=== PATIENT | male | born 1980 | race African-American/Black ===

== ENCOUNTER 2016-06-14 10:25 | Emergency (ER) | payer OTHER ==
[~2016-06-14] VITALS: Ht 167.6 cm; Wt 56.7 kg
[2016-06-14 10:30] VITALS: BP 106/65
[2016-06-14] MEDS ORDERED: KEFLEX500 MG ORAL (11:10)
[2016-06-14] MEDS ORDERED: BACTRIM DS TAB1 EAC1 ORAL (11:10)
[2016-06-14 11:15] VITALS: BP 104/67
--- NOTE | 2016-06-14 12:02 | Emergency Room Report ---
History of Present Illness General Chief Complaint: Skin Rash/Abscess Source: Patient Present Illness HPI 35-year-old male presents to ED complaining of pain and swelling to the right buttocks. States this pain only started a few days ago. States he has a "a boil". States last time he had this he had to get it lanced. Pain is throbbing , 7/10, nonradiating. No other aggravating relieving factors. Denies fevers or chills. Denies discharge. Denies any other associated symptoms Allergies: Coded Allergies: No Known Allergies (Unverified , 06/14/16) Patient History Past Medical History: none Past Surgical History: none Pertinent Family History: none Social History: Denies: alcohol use, drug use, smoking Immunizations: UTD Reviewed Nursing Documentation: PMH: Agreed, PSxH: Agreed Nursing Documentation-PMH Past Medical History: No Stated History Review of Systems All Other Systems: negative except mentioned in HPI Physical Exam Vital Signs Date Time Temp Pulse Resp B/P Pulse Ox O2 Delivery O2 Flow Rate FiO2 06/14/16 10:30 98.2 113 16 106/65 99 Room Air Sp02 EP Interpretation: reviewed, normal General Appearance: no apparent distress, alert, GCS 15, non-toxic Head: normocephalic Eyes: bilateral eye PERRL, bilateral eye normal inspection ENT: normal ENT inspection Neck: normal inspection Respiratory: normal inspection Cardiovascular #1: normal inspection Gastrointestinal: normal inspection Rectal: deferred Genitourinary: no CVA tenderness Musculoskeletal: normal inspection Neurologic: alert, oriented x3, responsive, motor strength/tone normal, sensory intact, speech normal Psychiatric: normal inspection Skin: other - induration/swelling R buttocks. no discharge. no fluctuance Lymphatic: normal inspection Medical Decision Making Diagnostic Impression: Primary Impression: Cellulitis of buttock ER Course Hospital Course 35-year-old male presents to ED with redness, swelling to right buttock Differential diagnoses include: Cellulitis, dermatitis, insect bite, abscess Clinical course Patient placed on stretcher. After initial history, physical exam reveals male in no acute distress. On exam there is induration and swelling to right buttock. No fluctuance or discharge. Patient appears nontoxic, afebrile. I do not believe amenable to I&D at this time. Patient will be treated conservatively with antibiotics, sitz bath. Instructed return to ED if fluctuance develops or discharge noted or patient develops a fever Diagnosis - cellulitis of buttock stable and discharged to home with prescription for Bactrim, Keflex. Sitz baths 3 times a day. Instructed to followup with PMD. Instructed return to ED if symptoms recur or worsen Last Vital Signs Date Time Temp Pulse Resp B/P Pulse Ox O2 Delivery O2 Flow Rate FiO2 06/14/16 11:15 98 16 104/67 100 Room Air 06/14/16 10:30 98.2 Status: improved Disposition: HOME, SELF-CARE Condition: Stable Scripts Trimethoprim/Sulfamethoxazole 160/800* (BACTRIM DS TABLET*) 1 Each Tablet 1 TAB ORAL Q12H, #14 TAB 0 Refills Prov: MARTIN VILLEDA M.D. 06/14/16 Cephalexin* (KEFLEX*) 500 Mg Capsule 500 MG ORAL Q6H, #28 CAP 0 Refills Prov: MARTIN VILLEDA M.D. 06/14/16 Referrals: KAYLEIGH HANNAH,REFERRING (PCP) Patient Instructions: MARTIN Bowen M.D. Jun 14, 2016 12:02
== END 2016-06-14 11:16 | disposition home or self-care (01) ==
LOC: EMR 11:05
DX: L03.317 Cellulitis of buttock (principal)
CPT/HCPCS: 99284